=== PATIENT | male | born 1985 | race African-American/Black ===

== ENCOUNTER 2021-03-14 12:45 | Emergency (ER) | payer OTHER ==
[~2021-03-14] VITALS: Ht 188 cm; Wt 103.6 kg
[2021-03-14 12:47] VITALS: BP 132/69
--- OUTSIDE RECORDS SUMMARY | 2021-03-14 13:51 | CCD ---
Demographics Address [id number] [place] [address] Preferred Language Kosovan Marital Status Unknown Hindu Affiliation Unknown Race Unknown Ethnic Group Not or Author Author [facility] Address Unknown Phone Unavailable Support Name Relationship Address Phone [facility] Next Of Kin [address] [place] [address] Unavailable ELMA NEELY Next Of [place] [id number] [place] [address] Re-disclosure Warning The records that you are about to access may contain information from federally-assisted alcohol or drug abuse programs. If such information is present, then the following federally mandated warning applies: This information has been disclosed to you from records protected by federal confidentiality rules (42 CFR part 2). The federal rules prohibit you from making any further disclosure of this information unless further disclosure is expressly permitted by the written consent of the person to whom it pertains or as otherwise permitted by 42 CFR part 2. A general authorization for the release of medical or other information is NOT sufficient for this purpose. The Federal rules restrict any use of the information to criminally investigate or prosecute any alcohol or drug abuse patient.The records that you are about to access may contain highly sensitive health information, the redisclosure of which is protected by Article 27-F of the [facility] Public Health law. If you continue you may have access to information: Regarding HIV / AIDS; Provided by facilities licensed or operated by the [facility] Office of Mental Health; or Provided by the [facility] Office for People With Developmental Disabilities. If such information is present, then the following [facility] mandated warning applies: This information has been disclosed to you from confidential records which are protected by state law. State law prohibits you from making any further disclosure of this information without the specific written consent of the person to whom it pertains, or as otherwise permitted by law. Any unauthorized further disclosure in violation of state law may result in a fine or correction sentence or both. A general authorization for the release of medical or other information is NOT sufficient authorization for further disc losure. Medications No Information Insurance Providers Payer name Policy type / Coverage type Policy ID Covered libertarian ID Covered libertarian's relationship to boyle Policy [employer] Plan Information [facility] [employer] [id number] Problems, Conditions, and Diagnoses No Information Surgeries/Procedures No Information Results No Information Social History No Information
--- NOTE | 2021-03-14 14:01 | REP ---
INDICATION: pain/injured in november COMPARISON: None. TECHNIQUE: AP, lateral, flexion/extension, bilateral oblique, and coned-down views. FINDINGS: Alignment and lordosis is maintained. The vertebral bodies including transverse process and spinous processes are intact and normal. There is no evidence for acute fracture / compression injury or subluxation. No evidence for spondylolysis or spondylolisthesis. No significant degenerative change is noted. IMPRESSION: Normal age-appropriate lumbosacral spine radiograph series. <Electronically signed by Jarrett Kelly > 03/14/21 [id number]
[2021-03-14] MEDS ORDERED: NAPR-837 PO (14:23)
== END 2021-03-14 14:27 | disposition home or self-care (01) ==
LOC: M ED 12:45
DX: S39.012A Strain of muscle, fascia and tendon of lower back, initial encounter (principal); Y92.9 Unspecified place or not applicable; Y93.9 Activity, unspecified; Y99.9 Unspecified external cause status

== ENCOUNTER → 2021-10-07 | Outpatient (REF) | payer OTHER ==
[~2021-10-07] MED LIST: NAPR-837 PO
== END ==
LOC: M LAB REF 15:01
PROVIDERS: ATTEND Physician Assistant
DX: R05.9 Cough, unspecified (principal); R50.9 Fever, unspecified

== ENCOUNTER 2022-12-07 12:20 | Day surgery (SDC) | payer OTHER ==
[~2022-12-07] VITALS: Ht 188 cm; Wt 106.8 kg
[~2022-12-07 12:20] MED LIST changes: +AMLO2.5T3 PO; +CYCL-707 PO; +HYDR-3910 PO; +NAPR-885 PO; +NS 1,000 ML IV ONE; +OMEP-173 PO; +TRAZ-252 PO
[2022-12-07] MEDS ORDERED: propofoL 200 MG/20 ML VIAL As Ordered ONE (13:52)
[2022-12-07] MEDS ORDERED: fentaNYL 100 MCG/2 ML INJECTION As Ordered ONE (13:54)
[2022-12-07 14:23] VITALS: TEMP 96.9
[2022-12-07 14:39] VITALS: BP 137/81; O2SAT 96
== END 2022-12-07 14:43 | disposition home or self-care (01) ==
LOC: M OPP 12:20
PROVIDERS: ATTEND Internal Medicine Gastroenterology
DX: K64.0 First degree hemorrhoids (principal); K59.04 Chronic idiopathic constipation; K29.70 Gastritis, unspecified, without bleeding; Z79.1 Long term (current) use of non-steroidal anti-inflammatories (NSAID); Z79.899 Other long term (current) drug therapy
CPT/HCPCS: 43239; 45380; 88305; J3010

== ENCOUNTER → 2023-02-24 | Outpatient (CLI) | payer OTHER ==
[~2023-02-24] MED LIST changes: -NS 1,000 ML IV ONE
== END ==
LOC: M PLAIMG 09:16
DX: M25.531 Pain in right wrist (principal); M25.532 Pain in left wrist